=== PATIENT | female | born 1975 | race Caucasian/White ===

== ENCOUNTER 2022-04-08 08:48 | Outpatient (CLI) | payer BC, SELFPAY ==
--- NOTE | 2022-04-08 10:14 | W.ANESCHARGE ---
Anesthesia Charges Start Date/Time Anesthesia Start Date: 04/08/22 Anesthesia Start Time: 10:05 Stop Date/Time Anesthesia Stop Date: 04/08/22 Anesthesia Stop Time: 10:29 Summary Emergency: No
--- NOTE | 2022-04-08 10:31 | W.ANESCHARGE ---
Anesthesia Charges Start Date/Time Anesthesia Start Date: 04/08/22 Anesthesia Start Time: 10:05 Stop Date/Time Anesthesia Stop Date: 04/08/22 Anesthesia Stop Time: 10:29 Summary Emergency: No
== END 2022-04-08 08:49 | disposition home or self-care (01) ==
PROVIDERS: PCP Physician Assistant Medical; Visit Provider Internal Medicine Gastroenterology
DX: R13.10 Dysphagia, unspecified (principal); K44.9 Diaphragmatic hernia without obstruction or gangrene
CPT/HCPCS: 00731; 43239; 88305; J2405; J2704; J3490